=== PATIENT | male | born 1955 | race Caucasian/White ===

== ENCOUNTER 2020-02-06 12:24 | Emergency (ER) | payer SELFPAY ==
[~2020-02-06] VITALS: Ht 182.3 cm; Wt 120.0 kg
--- NOTE | 2020-02-06 12:57 | ED GI ---
General Chief Complaint: Abdominal/GI Problems Stated Complaint: HERNIA PAIN Nursing Triage Note: Patient states he has known he has an umbilical hernia for 5 years, states it has never bothered him until today. Patient reports burning pain around his umbilicus for 1.5 hours, pain rated 8/10, denies any heavy lifting/strenuous physical exertion today, denies nausea/vomiting/diarrhea. States pain started at rest. Sepsis Screen: No Definite Risk History of Present Illness Date Seen by Provider: Feb 06, 2020 Time Seen by Provider: 12:50 Initial Comments 64-year-old male presents with abdominal pain (umbilical hernia) which is been intermittent for the past 5 years, today was worse and associated with a burning and more persistent than normal. Has never seen a doctor surgeon regarding this. Denies nausea vomiting or diarrhea. Denies fever or chills or weight loss. Allergies and Home Medications Allergies Coded Allergies: Penicillins (Verified Allergy, Unknown, 02/06/20) Patient Home Medication List Home Medication List Reviewed: Yes Review of Systems Review of Systems Constitutional: see HPI; No dizziness, No fever, No malaise, No weakness Respiratory: Denies Cough, Denies Shortness of Air Cardiovascular: Denies Chest Pain, Denies Edema, Denies Syncope Gastrointestinal: See HPI; Denies Abdomen Distended; Abdominal Pain; Denies Blood Streaked Stools, Denies Constipated, Denies Diarrhea, Denies Difficulty Swallowing, Denies Nausea, Denies Poor Appetite, Denies Poor Fluid Intake, Denies Rectal Bleeding, Denies Vomiting Genitourinary: No Symptoms Reported Musculoskeletal: No back pain, No muscle pain, No neck pain Skin: No change in color, No lesions, No rash Past [id number] Hx Past Med/Social Hx: Reviewed Nursing Past Med/Soc Hx Patient Social History Alcohol Use: Denies Use Recreational Drug Use: No Smoking Status: Never a Smoker 2nd Hand Smoke Exposure: No Recent Foreign Travel: No Contact w/Someone Who Travel: No Recent Infectious Disease Expo: No Recent Hopitalizations: No Physical Abuse: No Sexual Abuse: No Mistreated: No Fear: No Seasonal Allergies Seasonal Allergies: No Past Medical History 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 oz. kg; 36.00 BMI Method: General Appearance: WD/WN, no apparent distress Respiratory: chest non-tender, lungs clear Cardiovascular: regular rate, rhythm, no edema Gastrointestinal: soft, no organomegaly, no pulsatile mass; No distended, No guarding, No rebound; tenderness (umbilical hernia, easily reduced w manual pressure), hernia; No hepatomegaly, No spleenomegaly Progress/Results/Core Measures Results/Orders Vital Signs/I&O 02/06/20 12:31 Temp 36.5 Pulse 53 Resp 18 B/P (MAP) 131/75 (93) Pulse Ox 95 O2 Delivery Room Air Blood Pressure Mean: 93 Progress Progress Note : Progress Note Discussed reducing the hernia when it becomes uncomfortable. Also given contact information for 3 area surgeons and advised patient to schedule an appointment regarding elective umbilical hernia repair. Patient agrees and understands. Departure Impression Primary Impression: Umbilical hernia Qualified Codes: K42.9 - Umbilical hernia without obstruction or gangrene Disposition: 01 HOME, SELF-CARE Condition: Improved Departure-Patient Inst. Decision time for Depature: 12:56 Referrals: SONI CORADO BRETT D DO KIDO, TAKAAKI MD NO,LOCAL PHYSICIAN (PCP) Primary Care Physician Patient Instructions: Umbilical Hernia, Adult SEBASTIAN HALL DO Feb 06, 2020 12:57
[2020-02-06 13:06] VITALS: BP 141/77
--- OUTSIDE RECORDS SUMMARY | 2020-02-06 13:13 | XMS REPORT | Continuity of Care Document ---
Author Organization Unknown Address Unknown Phone Unavailable Allergies There is no data. Medications There is no data. Problems There is no data. Procedures There is no data. Results There is no data. Encounters ACCT No. Visit Date/Time Discharge Status Pt. Type Provider Facility Loc./Unit Complaint [id number] 02/06/2020 12:26:00 020 13:06:00 DIS Emergency SEBASTIAN HALL DO [facility] ER FS HERNIA PAIN
== END 2020-02-06 13:06 | disposition home or self-care (01) ==
LOC: ER FS 12:26
DX: K42.9 Umbilical hernia without obstruction or gangrene (principal); Z88.0 Allergy status to penicillin
CPT/HCPCS: 99282

== ENCOUNTER → 2023-05-05 | Outpatient (CLI) | payer MEDICARE ==
[~2023-05-05] VITALS: Ht 182.9 cm; Wt 108.5 kg
[~2023-05-05] MED LIST: ASPI-999 PO; LISI10TA25 PO; MAGN250C PO; METF-846 PO
== END | disposition home or self-care (01) ==
LOC: PREOP 05:48 → MERGE 12:30
PROVIDERS: ATTEND Surgery
DX: Z01.818 Encounter for other preprocedural examination (principal)

== ENCOUNTER 2023-05-14 09:51 | Day surgery (SDC) | payer MEDICARE ==
[~2023-05-14] VITALS: Ht 182.8 cm; Wt 108.5 kg
[2023-05-14] VITALS (12 sets, daily range): BP systolic 123–168; BP diastolic 58–91
[2023-05-14] MEDS: LACTATED RINGERS 1,000 ML 1,000 ML IV PRN ×2 (10:44→13:45)
[2023-05-14] MEDS ORDERED: CLINDAMYCIN 600 MG/50 ML IVPB 50 ML IV ONE (10:45)
[2023-05-14] MEDS ORDERED: fentaNYL INJECTION 100 MCG/2 ML VIAL ONE (11:00)
[2023-05-14] MEDS ORDERED: ONDANSETRON INJECTION 4 MG/2 ML (SDV) ONE (11:00)
[2023-05-14] MEDS ORDERED: proPOfol INJECTION 200 MG/20 ML VIAL IV ONE (11:00)
[2023-05-14] MEDS ORDERED: SEVOFLURANE (ULTANE) 15 ML INHAL SOLN ONE ×3 (11:00→13:23)
[2023-05-14] MEDS ORDERED: MIDAZOLAM INJ 2 MG/2 ML VIAL ONE (11:00)
[2023-05-14] MEDS ORDERED: LIDOCAINE PF 2% 5 ML VIAL ONE (11:00)
--- NOTE | 2023-05-14 11:01 | Progress Note-Pre Operative ---
Pre-Operative Progress Note Date of Available H&P: Apr 29, 2023 Date H&P Reviewed: May 14, 2023 Time H&P Reviewed: 10:58 History & Physical: H&P Reviewed, Patient Examed, No changes noted Pre-Operative Diagnosis: Incarcerated Umbilical hernia SONI CORADO DO May 14, 2023 11:01
[2023-05-14] MEDS ORDERED: LIDOCAINE 2% w/EPI 1:100,000 20 ML VIAL ONE (11:11)
[2023-05-14] MEDS ORDERED: ROCURONIUM 50 MG/5 ML VIAL IV ONE (13:27)
--- NOTE | 2023-05-14 13:45 | Progress Note-Post Operative ---
Post-Operative Progess Note Surgeon (s)/Organ Teacher (s) Surgeon SONI CORADO DO Organ Teacher: Blanka Pre-Operative Diagnosis Incarcerated Umbilical hernia Post-Operative Diagnosis Same, appx 3.5cm defect Procedure & Operative Findings Date of Procedure 05/14/23 Procedure Performed/Findings PROCEDURE: Laparoscopic Umbilical hernia repair with mesh - robot. COMPLICATIONS: None. INDICATIONS: The patient is a 67, male with an incarcerated umbilical hernia, which has c ontinued to increase in size and cause discomfort. The patient was explained the risk and benefits of the procedure and wished to proceed with the procedure. Consent was signed on the chart. DESCRIPTION OF PROCEDURE: The patient was taken into the operating suite, prepped and draped in sterile fashion. Surgical pause was performed. Local anesthetic was infiltrated in left upper quadrant. A #11 blade scalpel was used to make a small skin incision. Cautery was used to dissect down to the fascia, which was then scored and divided the muscle, went through the posterior sheath and a balloon trocar was inserted into the abdomen. The abdomen was then insufflated. I could see the incarcerated umbilical hernia and took a picture. I then placed two 8mm robotic trocars along the left lateral abdominal wall, using local lidocaine a stab incision with a #11 blade and watched as both trocars entered the abdomen. Dr. Moscoso then docked the robot. I then came across the peritoneum to get under the fat and worked my way towards the midline with scissors in right hand and bipolar grasper in the left. I was able to take out the hernia contents and visualize the hernia sac. The defect appeared to measure about 3.5cm. I then closed the fascial defect with Strattafix suture. Dr. Moscoso then placed a 5mm Versa- step port on the right; in the normal fashion. Dr. Moscoso made a small stab inc ision under the umbilicus and the I Jason-Eugene was advanced into the abdomen at about the middle of the defect. Echo Ventralight mesh (4.5 inch round) was then inserted into the abdomen grabbed through the stab incision. The balloon was inflated on the mesh and circumferential tacks were placed with a SecureStrap Tacker. The balloon was then removed and inner crown was created as well. The mesh was tacked with pressure being decreased. The hernia contents were then brought out through the left upper quadrant incisions. The 12 mm fascial defect in the left upper monet- drant was then closed using 0 Vicryl. The abdomen was then desufflated,the trocars were removed. The skin was then closed by Dr. Moscoso with 4-0 Monocryl in a simple subcuticular fashion. The abdomen was washed and dried and Skin Affix was placed over the incisions. The patient romie- ated procedure well without any complications. He was taken to recovery room in stable condition. Dr. Moscoso also helped tack the mesh in place. Anesthesia Type GET Estimated Blood Loss Estimated blood loss (mL): scant Specimens/Packing Specimens Removed hernia contents SONI CORADO DO May 14, 2023 13:45
[2023-05-14] MEDS ORDERED: ACHD5005 PO (13:46)
--- NOTE | 2023-05-14 13:47 | Discharge Inst-Surgical ---
Discharge Inst-Surgical Depart Medication/Instructions New, Converted or Re-Newed RX: Transmitted to Pharmacy Patient Instructions Follow up Appt: Make appointment for 1 week. [phone] Instructions: No lifting greater than 20 pounds. No strenuous activity. May shower in 24 hours, no tub bath or soaking. Use incentive spirometer at home as directed. No Smoking Skin/Wound Care: May remove bandages in am. You need to leave the Dermabond on incision it will fall off on it's own. Symptoms to Report: Appetite Changes, Extremity Discoloration, Numbness/Tingling, Swelling Increased, Bleeding Excessive, Eyesight Changes, Pain Increased, Urine Color Change, Constipation(Persistent), Fever over 101 degree F, Pain/Pressure in chest, Urinating Difficulty, Cough Up/Vomit Blood, Heart Beat Irreg/Pounding, Pain/Pressure in jaw, Cramps in feet or legs, Lightheadedness, Pain/Pressure in shoulder, Diarrhea(Persistent), Memory Changes Suddenly, Questions/Concerns, Weight gain consecutive days, Dizziness/Fainting, Nausea/Vomiting, Shortness of Breath, Weight gain over 2 pounds If questions or concerns contact your physician Or seek help at emergency department. Activity Activity as Tolerated: Yes Activity Instructions: Avoid Stress to Incision Driving Instructions: No Driving/Refer to Dr. Woods Discharge Diet: No Restrictions Diet After 24 Hours: Clear Liquid if Nauseous If Any Problems/Questions/Issu: Contact Your Physician, Go to Emergency Room Skin/Wound Care Infection Signs and Symptoms: Increased Redness, Foul Odor of Wound, Increased Drainage, Skin Itchy or Has a Rash, Increased Swelling, Temperature Above 101 F Bathing Instructions: Shower Stitches/Iselin/Dermabond Dis: SONI Deleon DO May 14, 2023 13:47
[2023-05-14] MEDS ORDERED: morphine INJ 10 MG/ML 1ML (SYR OR VIAL) ONE (14:09)
[2023-05-14] MEDS ORDERED: morphine INJ 10 MG/ML 1ML (SYR OR VIAL) IVP ONE (14:15)
[2023-05-14] MEDS ORDERED: HYDROmorphone INJECTION 2 MG/ML VIAL IV ONE (14:15)
[2023-05-14] MEDS ORDERED: ONDANSETRON INJECTION 4 MG/2 ML (SDV) IVP PRN (14:15)
== END 2023-05-14 16:00 | disposition home or self-care (01) ==
LOC: SDC 09:51 → MERGE 12:00 → SDC 16:00
PROVIDERS: ATTEND Surgery
DX: K42.0 Umbilical hernia with obstruction, without gangrene (principal); Z87.891 Personal history of nicotine dependence; E66.9 Obesity, unspecified; Z68.32 Body mass index [BMI] 32.0-32.9, adult
CPT/HCPCS: 49594; 87081; C1781